=== PATIENT | female | born 1995 ===

== ENCOUNTER → 2019-12-05 | Outpatient (REF) | payer OTHER ==
[2019-12-06 07:18] LABS: CHLAMYDIA DNA AMPLIFICATION NEGATIVE (NEGATIVE); GC DNA AMPLIFICATION NEGATIVE (NEGATIVE)
== END ==
LOC: M LAB REF 11:54
PROVIDERS: ATTEND Physician Assistant Medical
DX: Z11.3 Encounter for screening for infections with a predominantly sexual mode of transmission (principal)